=== PATIENT | male | born 1955 ===

== ENCOUNTER 2020-06-29 00:50 | Emergency (ER) | payer SELFPAY ==
[2020-06-29 00:59] VITALS: BP 151/88; PULSE 84; RESP 16; TEMP 36.8; O2SAT 100; BMI 26.9
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
--- NOTE | 2020-06-29 01:12 | XR_ITS ---
WS: [id number] Left arm and humerus, 2 views, 06/29/2020 Clinical Data: left arm pain and injury Comparison: None. Findings: No fractures or dislocations are seen. The shaft of the humerus is intact. The visualized left shoul karlie and left elbow are not remarkable. XR/[place] [id number] Impression: Negative left arm and humerus.
--- NOTE | 2020-06-29 01:12 | USCV_ITS ---
Milviahi Roycemagi Age: 64 Gender: M : 1955 Exam Date: 06/29/2020 01:49 Ordering Phys: Slim Hammond Technologist: Nelson Hardin Exam Location: [facility] [place] Indication: HEMATOMA LT ARM HISTORY: Bruise on Lt. Arm with no trauma PROCEDURES: Venous duplex imaging was performed in only the left upper extremity. The following venous structures were evaluated: internal jugular vein, subclavian vein, axillary vein, and brachial veins. Serial compression, augmentation maneuvers, and spectral Doppler flow evaluation were performed. FINDINGS: No DVT seen in any vessel examined Hematoma seen Lt Upper Arm. CONCLUSIONS The exam was technically difficult. No evidence of thrombus of the left upper extremity veins. Gunnar Chavez MD (Electronically Signed) Final Date: 29 June 2020 17:55 S
[2020-06-29 02:23] VITALS: BP 128/95; PULSE 85; RESP 18; O2SAT 98
== END 2020-06-29 02:23 | disposition home or self-care (01) ==
PROVIDERS: Emergency Provider Physician Assistant
DX: S40.022A Contusion of left upper arm, initial encounter (principal); V89.2XXA Person injured in unspecified motor-vehicle accident, traffic, initial encounter
CPT/HCPCS: 12345; 73060; 93971; 99281; 99283